=== PATIENT | male | born 1965 | race Two or more races ===

== ENCOUNTER → 2025-01-09 | Outpatient (CLI) | payer MEDICAID, SELFPAY ==
--- NOTE | 2025-01-09 14:00 | XR_ITS ---
Examination: CT chest, without intravenous contrast. Sagittal and coronal 2-D reconstructions. Exam date and time: January 09, 2025 1358 hours INDICATIONS: Smoking history 20 years, screening CTDI:vol (mGy) 14.2 DLP: (mGycm) 531 Technique: Multiple 3.0 mm axial sections of the chest to been obtained. Bone and lung density settings are obtained. Sagittal and coronal 2-D reconstructions have been obtained. Low dose protocols were performed. One or more of the following dose reduction techniques were used; automated exposure control, adjustment of the mA and/or KV according to patient size, use of iterative reconstruction technique. Findings: AP dimension ascending thoracic aorta 4.0 cm Pulmonary artery segments are not enlarged No paratracheal tracheobronchial or bronchopulmonary adenopathy 3 mm pulmonary nodule posterior left lung image 181 2 mm pulmonary nodule right upper lobe image 212 3 mm pulmonary nodule right lower lobe image 215 No pneumonia or pulmonary edema No visualized liver splenic lesion Contracted gallbladder Normal pancreas Kidneys partially visualized no hydronephrosis IMPRESSION: Subcentimeter pulmonary nodules as above, with this study as baseline recommend continued 6 month follow-up CT chest without contrast
== END | disposition home or self-care (01) ==
PROVIDERS: PCP Physician Assistant; Referring Provider Physician Assistant; Visit Provider Physician Assistant
DX: R91.8 Other nonspecific abnormal finding of lung field (principal); F17.210 Nicotine dependence, cigarettes, uncomplicated
CPT/HCPCS: 71271

== ENCOUNTER 2025-05-12 13:38 | Emergency (ER) | payer MEDICAID, SELFPAY ==
[2025-05-12 14:00] VITALS: BP 144/93; PULSE 86; RESP 18; TEMP 36.9; O2SAT 97; BMI 27.4
--- NOTE | 2025-05-12 14:20 | XR_ITS ---
Examination: CT abdomen with intravenous contrast CT pelvis with intravenous contrast 2-D coronal reconstructions 2-D sagittal reconstructions Date and time of exam: May 12, 2025, 1551 hours INDICATIONS: Lower abdominal pain and groin pain beginning 10 days ago COMPARISON: January 06, 2021. CTDI: vol (mGy) 9.74 DLP: (mGycm) 550 Technique: Multiple axial sections of the abdomen and pelvis have been obtained. 64 slice high-resolution scanner used. 3 mm axial sections have been obtained, post intravenous injection 60 cc [id number] 2-D sagittal, coronal reconstructions obtained. Low dose protocols were performed. One or more of the following dose reduction techniques were used; automated exposure control, adjustment of the mA and/or KV according to patient size, use of iterative reconstruction technique. Findings: Diffuse fatty infiltration throughout the liver Spleen is not enlarged Contracted gallbladder No pancreatic or adrenal mass No renal or ureteral calculi, no hydronephrosis Normal appendix Colonic diverticulosis, no diverticulitis Moderate prostatomegaly Contracted urinary bladder Moderate osteopenia Large fat-containing inguinal hernia extending into the left scrotal sac IMPRESSION: No renal or ureteral calculi, no hydronephrosis Normal appendix Colonic diverticulosis, no diverticulitis Large fat-containing inguinal hernia extending into the left scrotal sac
[2025-05-12 14:51] LABS: Collection Type, Urine Clean Catch; Squamous Epithelial Cell,Urine 0 /hpf (0-5)
[2025-05-12] MEDS: KETOROLAC INJ 30 MG/ML VIAL IM (14:51)
[2025-05-12] MEDS: HYDROcodone/APAP 5/325 TABLET 1 TAB PO (14:51)
[2025-05-12 14:57] LABS: Bilirubin,Urine Negative (Negative); Blood,Urine Negative (Negative); Clarity,Urine Clear (Clear/Hazy); Color,Urine Yellow (Lt Yel-Yel); Glucose, Urine Negative (Negative); Ketones,Urine Negative (Negative); Leukocyte Esterase,Urine Negative (Negative); Nitrite,Urine Negative (Negative); PH,Urine 7.0 (5.0-7.0); Protein,Urine Trace (Neg - Trace); RBC,Urine 2 /hpf (0-3); Specific Gravity,Urine 1.029 (1.001-1.035); Urobilinogen,Urine Negative mg/dL (0.0-1.0); WBC,Urine 1 /hpf (0-5)
[2025-05-12 15:09] LABS: Basophils # (Auto) 0.1 Thou/mm3 (0.0-0.2); Basophils % (Auto) 1 % (0-2.5); Eosinophils # (Auto) 0.4 Thou/mm3 (0.0-0.5); Eosinophils % (Auto) 5 % (0-10); Hematocrit 50.9 % (41.0-53.0); Hemoglobin 17.2 g/dL (13.5-16.0); Immature Granulocytes Auto 0.01 Thou/mm3 (0.00-0.00); Lymphocytes # (Auto) 2.8 Thou/mm3 (1.0-4.8); Lymphocytes % (Auto) 38 % (10-50); Mean Corpuscular HGB Conc 33.8 g/dl (31.0-37.0); Mean Corpuscular Hemoglobin 29.5 pg (25.0-35.0); Mean Corpuscular Volume 87 fL (80-100); Monocytes # (Auto) 0.7 Thou/mm3 (0.0-0.8); Monocytes % (Auto) 9 % (0-12); Neutrophils # (Auto) 3.5 Thou/mm3 (1.8-7.7); Neutrophils % (Auto) 47 % (37-80); Nucleated Red Blood Cell # 0.00 Thou/mm3 (0.00-0.00); Nucleated Red Blood Cell % 0 /100 WBC (0); Platelet Count 102 Thou/mm3 (140-440); RDW Standard Deviation 45.0 fL (35.1-43.9); Red Blood Count 5.84 Miln/mm3 (4.50-5.90); White Blood Count 7.4 Thou/mm3 (3.8-10.6)
[2025-05-12 15:24] LABS: Prostate Specific Antigen 0.87 ng/mL (0-4.00)
[2025-05-12 15:25] LABS: Alanine Aminotransferase 25 U/L (10-49); Albumin, Serum 4.6 gm/dL (3.4-4.8); Albumin/Globulin Ratio 2.0 (1.2-2.2); Alkaline Phosphatase 63 U/L (46-116); Anion Gap 10 (7-16); Aspartate Amino Transferase 24 U/L (0-34); BUN/Creatinine Ratio 10 Ratio (12-20); Bilirubin,Total 0.6 mg/dL (0.3-1.2); Blood Urea Nitrogen 10 mg/dL (9-23); Calcium 9.1 mg/dL (8.3-10.6); Calcium (Corrected) 9.1 mg/dL (8.5-10.1); Carbon Dioxide 27.0 mMol/L (20.0-31.0); Chloride 107 mMol/L (98-107); Creatinine (Component) 1.0 mg/dL (0.6-1.3); Estimated Creatinine Clearance 78.6 mL/min (>60); Globulin 2.3 gm/dL (2.3-3.5); Glucose 100 mg/dL (74-106); Lipase 34 U/L (12-53); Osmolality,Calculated 285 (275-295); Potassium 3.9 mMol/L (3.4-5.1); Sodium 144 mMol/L (136-145); Total Protein 6.9 gm/dL (5.7-8.2); eGFR > 60 See Note
--- NOTE | 2025-05-12 15:30 | PD.EDABDPN ---
ED Abdominal Pain RME/HPI General Chief Complaint: Abdominal Pain Stated complaint: Abd/groin pain x 10 days Time seen by provider: 05/12/25 14:01 Arrival date/time: 05/12/25 13:38 60-year-old male patient came in for evaluation regarding lower abdominal pain. Onset of symptoms for the last 10 days, getting worse, pain radiates to the groin. Patient denies any vomiting denies any fever denies any other complaints. Patient was seen by PCP and was started on Cipro and prostate medication. According to the patient been taking it for 3 days and there was no improvement noted. No other complaints noted. Related Data Home Medications ?Medication ?Instructions ?Recorded ?Confirmed fluticasone furoate 100 1 inh inhalation QDAY 10/11/18 01/24/19 mcg-vilanterol 25 mcg/dose inhalation powder (Breo Ellipta) losartan 50 mg tablet (Cozaar) 50 mg PO QDAY 10/11/18 01/24/19 terazosin 5 mg capsule 5 mg PO QDAY 01/24/19 01/24/19 Previous Rx's ?Medication ?Instructions ?Recorded Vicodin 5 mg-300 mg tablet 1 tab PO Q6H pain #30 tabs 01/24/19 (hydrocodone-acetaminophen) ibuprofen 800 mg tablet 800 mg PO TID pain #60 tabs 01/24/19 acetaminophen 300 mg-codeine 30 mg 1 tab PO Q6H PRN pain #20 tabs 01/18/20 tablet (Tylenol-Codeine #3) amoxicillin 875 mg-potassium 1 tab PO BID #14 tabs 01/18/20 clavulanate 125 mg tablet (Augmentin) fexofenadine 60 mg-pseudoephedrine 1 tab PO Q12H PRN nasal congestion 01/18/20 ER 120 mg tablet,ext.release,12 hr #14 tabs (Liz-D 12 Hour) dicyclomine 10 mg capsule 10 mg PO BID #20 caps 01/06/21 tamsulosin 0.4 mg capsule (Flomax) 0.4 mg PO QDAY #30 caps 05/12/25 Allergies Allergy/AdvReac Type Severity Reaction Status Date / Time No Known Allergies Allergy Verified 05/12/25 13:42 Review of Systems Review of Systems Narrative Review of Systems: Review of system reviewed and within normal limits except mentioned in HPI ED Exam Narrative Physical exam: VITAL SIGNS: Reviewed. GENERAL APPEARANCE: Alert and interactive, follows commands, no acute distress, HEAD AND FACE: Non-traumatic. ENT: PERRL, pink conjunctivitis, eyelid no trauma, Mucous membrane moist. NECK: Supple, nontender, no nuchal rigidity. CHEST: No tenderness, no crepitus, no paradoxical movement, no retractions. LUNGS: Clear, well ventilated, symmetric, no rales, no wheezing, no ronchi, no stridor, good breath sounds bilaterally. HEART: Regular rate, regular rhythm, no murmur, no gallops. ABDOMEN: Soft, positive bowel sounds, nondistended, no guarding, lower abdominal pain, no rebound, no masses, RECTAL: Deferred. GENITAL: Deferred. Fat-containing hernia noted on the left inguinal area nontender NEUROLOGICAL: Gross motor function intact sensory function intact, Appropriate for age. MUSCULOSKELETAL: low back nontender, full range of motion. EXTREMITIES: Nontender, full range of motion. SKIN: Color pink, dry, no rash, no lacerations, no abrasions, no contusions. LYMPHATICS: Deferred. Course Quality Measures none Orders Category Date Time Status CT Screening NOW Care 05/12/25 14:21 Active Insert IV NOW Care 05/12/25 14:[address] abdomen pelvis w con Stat Exams 05/12/25 14:20 Completed CBC Stat Lab 05/12/25 14:45 Completed CMP [Comprehensive Metabolic Panel] Stat Lab 05/12/25 14:45 Completed Lipase Stat Lab 05/12/25 14:45 Completed PSA [Prostate Specific Antigen] Stat Lab 05/12/25 14:45 Completed UA [Urinalysis] Stat Lab 05/12/25 14:40 Completed HYDROcodone*/APAP 5/325 [[place] 5/325] Med 05/12/25 14:20 Discontinued 1 tab PO X1 ONE Ketorolac Inj [Toradol Inj] Med 05/12/25 14:20 Discontinued 30 mg IM X1 ONE Ringers Lactated 1000 ml [Lactated Ringers] 1,000 ml Med 05/12/25 15:30 Discontinued IV 999 mls/hr Vital Signs Vital signs: Vital Signs Temperature 98.5 F 05/12/25 14:00 Pulse Rate 86 05/12/25 14:00 Respiratory Rate 18 05/12/25 14:00 Blood Pressure 144/93 H 05/12/25 14:00 Pulse Oximetry (%) 97 05/12/25 14:00 Oxygen Delivery Method Room Air 05/12/25 14:00 Abdominal Pain MDM MDM Narrative MDM Narrative:: 60-year-old male patient came in for evaluation regarding lower abdominal pain. Onset of symptoms for the last 10 days, getting worse, pain radiates to the left groin. Patient denies any vomiting denies any fever denies any other complaints. Patient was seen by PCP and was started on Cipro and prostate medication. According to the patient been taking it for 3 days and there was no improvement noted. No other complaints noted. Patient's laboratory workup all came back normal no UTI no leukocytosis, CT scan of the abdomen pelvis showed No renal or ureteral calculi, no hydronephrosis Normal appendix Colonic diverticulosis, no diverticulitis Large fat-containing inguinal hernia extending into the left scrotal sac Patient was given a copy of his CT scan results, I advised him to follow-up with PCP and for referral to general surgeon regarding large inguinal hernia on the left and prostatomegaly patient agrees with the plan. Stable for discharge home. Patient data External records reviewed:: None Clinical information provided by:: patient, family and none Social determinants that could affect healthcare access:: none Patient has the following chronic illnesses:: History of prostate enlargement How is presenting disease/condition affected by chronic disease/condition?: exacerbated by Evaluation data The following diagnostics were reviewed and interpreted by me:: lab results and radiology exam(s) Lab and/or radiology exams considered but not ordered:: None Interpretation Summary: See above Medications / Prescriptions Medications or Prescriptions considered but not ordered:: None Medication administrations:: Medication Administration History Discontinued Medications Hydrocodone Bitart/Acetaminophen (Hydrocodone/Apap 5/325 Tablet) 1 tab PO X1 ONE Stop: 05/12/25 14:21 Last Admin: 05/12/25 14:51 Dose: 1 tab Documented By: BRAD Lactated Ringer's (Lactated Ringers) 1,000 mls @ 999 mls/hr IV .Q1H1M ONE Stop: 05/12/25 16:30 Last Infusion: 05/12/25 16:54 Dose: Infused Documented By: Admin: 05/12/25 15:58 Dose: 999 mls/hr Documented By: BD Ketorolac Tromethamine (Ketorolac Inj 30 Mg/Ml Vial) 30 mg IM X1 ONE Stop: 05/12/25 14:21 Last Admin: 05/12/25 14:51 Dose: 30 mg Documented By: BD Toradol, IV fluids, [place] Consultations Consultation(s) initiated? (list below): No Diagnosis Differential diagnosis abdominal pain: abdominal pain, constipation and other Most likely diagnosis given after review of the tests above:: Denial hernia on the left, prostatomegaly Admission Indicated Admission indicated?: not indicated Admission Request Was there a request for admission?: No Disposition Plan Disposition Plan: Discharge Discharge Attestation Discharge Attestation: The patient and all family members were given an opportunity to ask questions and understood the discharge instructions. Discharge instructions specifically effects, indications for sooner follow up or return to the emergency department, and the expected course of current diagnosis. Patient condition: Stable Discharge Plan Plan Patient Disposition: HOME (Self Care) Discharge Disposition comment: Stable Prescriptions/Referrals Prescriptions/Med Rec: New tamsulosin [Flomax] 0.4 mg capsule 0.4 mg PO QDAY Qty: 30 0RF No Action losartan [Cozaar] 50 mg Tablet 50 mg PO QDAY Breo Ellipta 100-25 mcg/dose Blister With Device 1 inh INHALATION QDAY terazosin 5 mg Capsule 5 mg PO QDAY ibuprofen 800 mg tablet 800 mg PO TID MDD three tabs Qty: 60 0RF hydrocodone-acetaminophen [Vicodin] 5-300 mg tablet 1 tab PO Q6H MDD 4 tabs Qty: 30 0RF amoxicillin-pot clavulanate [Augmentin] 875-125 mg tablet 1 tab PO BID Qty: 14 0RF fexofenadine-pseudoephedrine [Liz-D 12 Hour] 60-120 mg tablet extended release 12 hr 1 tab PO Q12H PRN (Reason: nasal congestion) Qty: 14 0RF acetaminophen-codeine [Tylenol-Codeine #3] 300-30 mg tablet 1 tab PO Q6H PRN (Reason: pain) Qty: 20 0RF dicyclomine 10 mg capsule 10 mg PO BID Qty: 20 0RF Problem List Clinical Impression: Abdominal pain, Inguinal hernia, Enlarged prostate Patient/Caregiver Discharge Instructions Discharge Activity: activity as tolerated Education Materials: ED Hernia (Adult) Additional Instructions: Thank you for the opportunity for serving you today. You are stable for discharged . You are advised to: Follow-up with your PCP in 1 to 2 days and ask your doctor to refer you to a general surgeon regarding your right inguinal hernia and urologist for your prostate enlargement Return to ED for worsening of symptoms Increase oral fluids Take medication as prescribed Print Language: French Stand Alone Forms: Kelsey Award Info., Patient Portal Info Letter PA/ANTONIETA Supervising Physician JIAN/ANTONIETA Supervising Physician: MD Marybel
[2025-05-12] MEDS: RINGERS LACTATED 1000 ML 1,000 ML 999 ML IV (15:58)
[2025-05-12 17:27] VITALS: BP 140/90; PULSE 86; RESP 16; TEMP 36.9; O2SAT 97
== END 2025-05-12 17:28 | disposition home or self-care (01) ==
LOC: SERX 17:39
PROVIDERS: Physician Assistant; Emergency Provider Emergency Medicine
DX: K40.90 Unilateral inguinal hernia, without obstruction or gangrene, not specified as recurrent (principal); N40.0 Benign prostatic hyperplasia without lower urinary tract symptoms
CPT/HCPCS: 36415; 74177; 80053; 81001; 83690; 84153; 85025; 96360; 96372; 99283; A4649; J1885; J7120; Q9967; A9270

== ENCOUNTER → 2025-05-31 | Outpatient (CLI) | payer MEDICAID, SELFPAY ==
--- NOTE | 2025-05-31 11:30 | XR_ITS ---
Examination: Abdomen sonogram, complete Date and time of exam: May 31, 2025, 1053 hours INDICATIONS: Upper abdominal pain beginning 5 years ago.. Technique: Multiple real-time grayscale transabdominal sonographic images of the abdomen have been obtained. Findings: Gallbladder sludge Negative for gallstones, normal gallbladder wall Normal common bile duct 0.2 cm Pancreatic head 2.5 cm Aorta not enlarged Liver 13.4 cm fatty infiltration Normal hepatopetal portal venous flow Patent IVC Right kidney 12.3 cm renal cortex 1.6 cm Left kidney 11.4 cm renal cortex 1.9 cm Mild renal scar formation Spleen 10.3 cm IMPRESSION: Gallbladder sludge, negative for cholelithiasis, negative for cholecystitis Normal common bile duct
== END | disposition home or self-care (01) ==
LOC: CDIM 10:41
PROVIDERS: PCP Physician Assistant; Referring Provider Nurse Practitioner Obstetrics & Gynecology; Visit Provider Nurse Practitioner Obstetrics & Gynecology
DX: K82.8 Other specified diseases of gallbladder (principal)
CPT/HCPCS: 76700